=== PATIENT | male | born 1975 | race Caucasian/White ===

== ENCOUNTER 2020-01-01 07:33 | Outpatient (CLI) | payer BC, SELFPAY ==
--- NOTE | 2020-01-22 16:48 | WPDHOMESLEEP ---
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 He has excessive daytime sleepiness. His snoring is constantly loud enough that it bothers others. He occasionally awakens at night with heartburn, belching and coughing. He rarely wakes up from sleep feeling short of breath. He occasionally has trouble sleep with a cold. He rarely wakes up gasping for breath. He occasionally has breathing problems reported to him by others. He frequently sweats excessively at night. He occasionally notices his heart pounding or beating irregularly at night. He occasionally falls asleep during the day. He rarely falls asleep involuntarily, never while driving and never during physical effort. He does not have loss of muscle tone with strong emotion. He frequently has daytime difficulties due to excessive sleepiness. He never feels paralyzed on waking or falling asleep. He occasionally has vivid dreamlike scenes upon awakening or falling asleep. He rarely feels afraid to go to sleep. He occasionally recalls dreams, has racing thoughts, and occasionally has nightmares. He rarely feels sad or depressed. He occasionally Has anxiety. He frequently has muscular tension. He rarely notices parts of his body jerking at night, rarely takes at night. He does not have crawling or aching feelings in his legs. He does not have leg pain at night. He denies morning jaw pain and does not grind his teeth during sleep. He rarely is bothered by pain during the day, rarely is awakened by pain at night. He frequently wakes up feeling stiff in the morning with sore HD muscles and pain in the neck and spine. He has fatigue and difficulty concentrating. Normal bedtime is between 10:00 p.m. and 11:00 p.m. falling asleep within 1 hour, typically waking 1 or 2 times at night for a few minutes. While awake he will turn over or sometimes go to the bathroom. His wake time is between 3 and 4:00 a.m.. He estimates 5-6 hours of sleep at night. On the weekends he may stay awake until midnight and wake in the morning between 5 and 6:00 a.m.. He does take naps. A short nap may be refreshing. He is usually drowsy in the morning for 2 hours. Habits: No mention of tobacco. Caffeine 2 beverages daily. No alcohol or recreational drugs mentioned. [facility] Past Medical History Medical History Apnea Encounter for wellness examination Impaired endurance Screening for prostate cancer Screening, lipid Sleep disturbance Surgical History Surgical History H/O microdiscectomy Social History Social History Smoking status: Never smoker Alcohol intake: never Substance use: never Substance use type: does not use Gender identity (if verbalized by the patient): Male Medications Home Medications Medication Instructions Recorded Confirmed Type No Home Medications 11/21/19 11/21/19 History Sleep Procedure This test was performed using 4 channel monitoring including respiratory effort channel, snoring channel, heart rate channel, and oxygen saturation channel. This study was scored using CMS guidelines. Sleep Architecture Not applicable for home sleep test. Respiratory Analysis The recording time is 8 hours 12 minutes. If the evaluation time is 8 hours 0 minutes. the apnea-hypopnea index is 26.1. There were 39 apneas. The majority 95% of the apneas or 37 were obstructive. There was 1
[2020-01-22 17:21] VITALS: BMI 39.1
== END 2020-01-01 07:34 | disposition home or self-care (01) ==
LOC: ANHCSM 07:33
PROVIDERS: PCP Family Medicine; Visit Provider Family Medicine
DX: G47.00 Insomnia, unspecified (principal); G47.33 Obstructive sleep apnea (adult) (pediatric)
CPT/HCPCS: 95806